=== PATIENT | female | born 1955 | race Caucasian/White ===

== ENCOUNTER 2019-12-30 05:23 | Day surgery (SDC) | payer OTHER ==
[~2019-12-30 05:23] MED LIST: ACETAMINOPHEN 325 MG TABLET ONE; ACETAMINOPHEN 325 MG TABLET PO PRN; CEFAZOLIN SODIUM 2 GM in DEXTROSE 5%-WATER 100 ML IV PRN; CELECOXIB 200 MG CAPSULE ONE; CELECOXIB 200 MG CAPSULE PO PRN; GABAPENTIN 100 MG CAPSULE ONE; GABAPENTIN 100 MG CAPSULE PO PRN; LACTATED RINGERS 1000 ML IV PRN; LIDOCAINE 0.5% INJ-PF (5 MG/ML) 50 ML SDV SUBCUT PRN; ONDANSETRON HCL INJ/PF 4 MG/2 ML SDV IV PRN; ONDANSETRON HCL INJ/PF 4 MG/2 ML SDV ONE; OXYCODONE HCL SR 10 MG TABLET PO ONE; OXYCODONE HCL SR 10 MG TABLET PO PRN; SCOPOLAMINE HYDROBROMIDE 1.5 MG PATCH.TD72 ONE; SCOPOLAMINE HYDROBROMIDE 1.5 MG PATCH.TD72 TD PRN; TRAMADOL HCL 50 MG TABLET ONE; TRAMADOL HCL 50 MG TABLET PO PRN; TRANEXAMIC ACID INJ/PF 1,000 MG/10 ML SDV IV PRN; VANCOMYCIN HCL 1,000 MG in NORMAL SALINE 250 ML IV PRN
[2019-12-30] MEDS ORDERED: VANCOMYCIN HCL INJ 1000 MG VIAL ONE (06:54)
[2019-12-30] MEDS ORDERED: BUPIVACAINE HCL 0.25 % INJ/PF (2.5 MG/1 ML) 30 ML VIAL ONE (06:54)
[2019-12-30] MEDS ORDERED: GENTAMICIN SULFATE INJ 80 MG/2 ML VIAL ONE (06:54)
[2019-12-30] MEDS ORDERED: KETOROLAC TROMETHAMINE INJ/PF 30 MG/1 ML SDV ONE (06:54)
[2019-12-30] MEDS ORDERED: LIDOCAINE 1% INJ-PF (10 MG/ML) 30 ML SDV ONE (06:54)
[2019-12-30] MEDS ORDERED: BACITRACIN INJ 50,000 UNIT VIAL ONE (06:55)
[2019-12-30] MEDS ORDERED: LIDOCAINE 2% INJ-PF (20 MG/ML) 10 ML AMPUL ONE (06:58)
[2019-12-30] MEDS ORDERED: ONDANSETRON HCL INJ/PF 4 MG/2 ML SDV ONE (06:59)
[2019-12-30] MEDS ORDERED: FENTANYL CITRATE INJ/PF 100 MCG/2 ML AMPUL ONE (06:59)
[2019-12-30] MEDS ORDERED: PROPOFOL INJ 200 MG/20 ML VIAL IV ONE (06:59)
[2019-12-30] MEDS ORDERED: MIDAZOLAM 2 MG/2 ML INJ ONE (06:59)
[2019-12-30] MEDS ORDERED: TRANEXAMIC ACID INJ/PF 1,000 MG/10 ML SDV ONE (07:35)
[2019-12-30] MEDS ORDERED: EPHEDRINE SULFATE INJ 50 MG/1 ML AMPULE ONE (08:25)
[2019-12-30] MEDS ORDERED: FENTANYL CITRATE INJ/PF 100 MCG/2 ML AMPUL IV PRN ×3 (08:30)
[2019-12-30] MEDS ORDERED: PROMETHAZINE HCL INJ 25 MG/1 ML VIAL IV PRN ×2 (08:30)
[2019-12-30] MEDS ORDERED: DIPHENHYDRAMINE HCL 50 MG/ML VIAL IV PRN (08:30)
[2019-12-30] MEDS ORDERED: ONDANSETRON HCL INJ/PF 4 MG/2 ML SDV IV PRN (08:30)
[2019-12-30] MEDS ORDERED: OXYCODONE-ACETAMINOPHEN 5-325 MG TABLET PO PRN ×2 (08:30)
[2019-12-30] MEDS ORDERED: MEPERIDINE HCL/PF INJ 25 MG/1 ML DISP.SYRIN IV PRN (08:30)
[2019-12-30] MEDS ORDERED: PHENYLEPHRINE HCL INJ/PF 10 MG/1 ML SDV ONE (10:37)
[2019-12-30] MEDS ORDERED: DEXAMETHASONE SOD PHOSPHATE INJ 4 MG/1 ML VIAL ONE (10:37)
--- NOTE | 2019-12-30 10:42 | RADIOLOGY REPORT (SQ) ---
EXAM DESCRIPTION: KNEE RIGHT 2 VIEWS COMPLETED DATE/TIME: 12/30/2019 10:12 am REASON FOR STUDY: CHECK POST OP PLACEMENT M17.11 UNILATERAL PRIMARY OSTEOARTHRITIS, RIGHT KNEE COMPARISON: None. NUMBER OF VIEWS: Two views. TECHNIQUE: AP and lateral radiographic images acquired of the right knee. LIMITATIONS: None. FINDINGS: Postoperative right knee two views. Good alignment. Total knee replacement with patellar resurfacing and bone cement. Appropriate soft tissue gas and air within the suprapatellar recess. IMPRESSION: Post right total knee replacement in good alignment TECHNICAL DOCUMENTATION: JOB ID: [id number] [address]- All Rights Reserved Reading location - IP/workstation name: [email or web address]
--- NOTE | 2019-12-30 10:53 | Operative Report ---
Operative Report DATE OF SURGERY: 12/30/19 PREOPERATIVE DIAGNOSIS: Right knee severe primary osteoarthritis POSTOPERATIVE DIAGNOSIS: Severe right knee primary osteoarthritis OPERATION: Right total knee arthroplasty SURGEON: YUSUF JENSEN JR ANESTHESIA: Spinal COMPLICATIONS: none ESTIMATED BLOOD LOSS: 20 cc PROCEDURE: Components: Yaa persona right total knee: 4 femur, C x 10 tibia, and a 29 patella BRIEF HISTORY: 64year old female with severe degenerative arthritis of right knee, which has failed conservative treatment and has elected for a total knee arthroplasty. They had been having severe debilitating pain that was preventing her from performing daily activities including ambulating for short distances, getting in and out of there car, going up and down stairs, and overall decreasing their quality of life due to their avoidance of activity because of pain. That failed conservative management including iulo-vyq-wsrwpmg pain medication such as Tylenol and ibuprofen. X-rays demonstrated severe vbly-rm-[id number] osteoarthritis with subchondral sclerosis osteophyte formation and joint space narrowing. Risks include but are not limited to bleeding, infection, anesthesia, , injury to nerve or vessel, pain, scar, leg length inequality, dislocation, future surgery, and blood clots. Patient read through the pre-op counseling form and signed and solicited for surgery on their right knee. OPERATIVE PROCEDURE: Patient was brought to the operating room on and underwent spinal anesthesia. After proper anesthesia was obtained, patient was positioned, padded, prepped, and draped in the usual sterile fashion on the operating room table. 2 grams of Ancef and 1 g of vancomycin were given. Appropriate time out was performed. Anterior incision and medial-parapatella approach was performed. Severe degenerative arthritis was noted. Osteophytes were removed from the femur and tibia, and the remainder of the ACL and PCL were removed. The proximal tibia was then prepared and cut perpendicular to the tibial shaft axis and measured to a C tibia. The distal femur was drilled, the canal was irrigated and the distal femoral guide was placed. The distal femur was cut 12 mm to 5 degrees of varus. An extension 10 block was placed in the gap was found to be appropriate. The tensor was placed in extension and the extension gap was balanced with releases until the goniometer on the tensor measured to 0. The tensor was placed in flexion and the femur was sized to 4. Drill holes were placed to the a ppropriate femoral rotation. The 4 and 1 block was placed and anterior- posterior and chamfer cuts were made. Posterior osteophytes were removed. The femoral trial was then placed, and the notch was cut. The combination of the tibial baseplate and the #10 polyethylene liner were then placed and the knee was taken through a range of motion with the trials in. This had excellent balance in extension and flexion as well as patellar tracking. The rotation of the tibial baseplate was marked, the tibial was anteriorly subluxed and the tibial component was pinned and drilled and punched. The patella AP aspect was measured to 19 mm and patella was cut parallel to the anterior patella surface. A 29 mm button was placed medially and superiorly as possible and the patella- button construct again measured 19 mm. Cement fixation places made on the femur and tibia, and pulsatile irrigation of the vanesa and soft tissue surfaces. The vanesa surfaces were cleaned and dried, and cementation of the femur, tibia, and patella. Periarticular injection with Lidocaine, Marcaine and Toradol was performed. The knee was irrigated with dilute betadine solution. A gram of Vancomycin was placed intra-articularly. The extensor mechanism was closed with 0 vicryl approximating sutures, number 2 Stratofix. The subcutaneous tissue closed with 2-0 monocryl and the skin closed with 3-0 running monocryl. A silver dressing was applied. All needle sponge and instrument counts were correct. Patient was awakened from sedation anesthesia and taken to recovery room in good condition. Yusuf Jensen DO
[2019-12-30] MEDS ORDERED: OXYCODONE HCL IR 5 MG TABLET PO PRN ×2 (12:09→12:10)
[2019-12-30] MEDS ORDERED: MORPHINE SULFATE 10 MG/ML INJ IV PRN (12:11)
[2019-12-30] MEDS ORDERED: DIPHENHYDRAMINE HCL 25 MG CAPSULE PO PRN (12:23)
[2019-12-30] MEDS ORDERED: ONDANSETRON 4 MG TAB.RAPDIS PO PRN (12:24)
[2019-12-30] MEDS ORDERED: DOCUSATE SODIUM 100 MG CAPSULE PO PRN (12:24)
[2019-12-30] MEDS ORDERED: NORMAL SALINE 1000 ML 1,000 ML IV PRN (12:25)
[2019-12-30] MEDS: ACETAMINOPHEN 325 MG TABLET PO SCH ×2 (13:20→21:31)
[2019-12-30] MEDS: KETOROLAC TROMETHAMINE INJ/PF 30 MG/1 ML SDV IV SCH ×2 (13:20→21:31)
[2019-12-30] MEDS ORDERED: ZOLPIDEM TARTRATE 5 MG TABLET PO PRN (13:57)
[2019-12-30] MEDS: CEFAZOLIN SODIUM 2 GM in DEXTROSE 5%-WATER 100 ML IV SCH ×2 (14:56→21:30)
[2019-12-30] MEDS ORDERED: GABAPENTIN 100 MG CAPSULE PO SCH (18:00)
[2019-12-30] MEDS ORDERED: PANTOPRAZOLE SODIUM 20 MG TABLET.DR PO SCH (18:00)
[2019-12-30] MEDS: TRAMADOL HCL 50 MG TABLET PO PRN (20:08)
[2019-12-31] MEDS: TRAMADOL HCL 50 MG TABLET PO PRN (02:16)
[2019-12-31] MEDS: ACETAMINOPHEN 325 MG TABLET PO SCH (05:30)
[2019-12-31] MEDS: KETOROLAC TROMETHAMINE INJ/PF 30 MG/1 ML SDV IV SCH (05:35)
--- NOTE | 2019-12-31 07:44 | PDOC PROGRESS REPORT ---
Subjective Progress Note for:: 12/31/19 Subjective:: Patient is doing well this morning. No acute events overnight. Reports some soreness but has been able to ambulate well to the bathroom without a walker by herself at night. Reason For Visit: M17.11 UNILATERAL PRIMARY OSTEOARTHRITIS, RIGHT KN Physical Exam Vital Signs: Temp Pulse Resp BP Pulse Ox 98.5 F 68 17 119/87 H 94 12/31/19 00:00 12/31/19 00:00 12/31/19 00:00 12/31/19 00:00 12/31/19 00:00 Intake & Output 12/30/19 12/31/19 01/01/20 06:59 06:59 06:59 Intake Total 0 4720 Output Total 2019 Balance 0 2700 Weight 69.9 kg Physical Exam: General appearance: PRESENT: no acute distress, cooperative, well-nourished Head exam: PRESENT: atraumatic, normocephalic Eye exam: PRESENT: EOMI Ear exam: PRESENT: normal external ear exam Mouth exam: PRESENT: neck supple Neck exam: ABSENT: tracheal deviation Respiratory exam: PRESENT: symmetrical, unlabored. ABSENT: accessory muscle use, wheezes Pulses: PRESENT: normal radial pulses, normal dorsalis pedis pulse Vascular exam: PRESENT: normal capillary refill GI/Abdominal exam: ABSENT: distended, firm Extremities exam: PRESENT: full ROM of bilateral shoulders, elbows wrists, knees, hips and ankles without pain Musculoskeletal exam: PRESENT: full ROM, normal inspection of all 4 extremities aside from that noted below. Neurological exam: PRESENT: alert, awake, oriented to person, oriented to place, oriented to time Psychiatric exam: PRESENT: appropriate affect. ABSENT: agitated Focused psych exam: ABSENT: catatonic Skin exam: PRESENT: intact. ABSENT: dry All as above aside from that noted in the HPI and the following: Right lower extremity -Pulses 2+ distally -Compartments soft -Wound dressing clean dry and intact no drainage in appropriate swelling for postop day -Sensation grossly intact to L3-4-5 S1 -Motor grossly intact to EHL TA gastroc and quad - Able to perform quad extension and elevate heel off of bed. Results Impressions: Knee X-Ray 12/30/19 00:00 IMPRESSION: Post right total knee replacement in good alignment Assessment & Plan - Diagnosis (1) Unilateral primary osteoarthritis, right knee Is this a current diagnosis for this admission?: Yes Plan: 2 doses of Ancef postoperatively q 8 hours to complete 24 hours perioperatively -Weightbearing as tolerated, no precautions, encourage out of bed TORRI for ADL training - PT/OT - Keep knee extended in bed, rolled towel under the ankle to obtain full extension -aspirin 325 daily for DVT prophylaxis for 6 weeks -multimodal pain management to avoid excessive narcotics, including gabapentin, tramadol, Toradol, acetaminophen. -Dressing should not be removed for 7 to 10 days until seen in the office -May shower with the dressing intact, if it starts to come off she should not get the incision wet. -I would like to follow the patient my office within the next 7 to 10 days at [address] [place] [address]. in [place] office #: [phone] - Time Time Spent with patient: Less than 15 minutes
[2019-12-31 08:43] VITALS: BP 119/87
[2019-12-31] MEDS ORDERED: (PENDING PHARMACY ID) (Ascorbic Acid [C-1000] 1,000 MG) PO SCH (10:00)
[2019-12-31] MEDS ORDERED: ASCORBIC ACID 500 MG TABLET PO SCH (10:00)
[2019-12-31] MEDS ORDERED: ASPIRIN 325 MG TABLET PO SCH (10:00)
[2019-12-31] MEDS ORDERED: MULTIVITAMINS W-IRON TABLET, CHEWABLE PO SCH ×2 (10:00)
[2019-12-31] MEDS ORDERED: POLYETHYLENE GLYCOL 3350 POWDER 17 GM/1 PACKET PO SCH (10:00)
[2019-12-31] MEDS ORDERED: LISINOPRIL 10 MG TABLET PO SCH (10:00)
[2019-12-31] MEDS ORDERED: SIMVASTATIN 10 MG TABLET PO SCH (10:00)
[2020-01-01] MEDS ORDERED: CELECOXIB 200 MG CAPSULE PO SCH (10:00)
--- NOTE | 2020-01-05 14:23 | PDOC DISCHARGE SUMMARY ---
Impression - Admit/DC Date/PCP Admission Date/Primary Care Provider: MICAELA DUMONT MD Discharge Date: 12/31/19 - Discharge Diagnosis (1) Unilateral primary osteoarthritis, right knee Is this a current diagnosis for this admission?: Yes - Assessment Summary: Right severe primary knee osteoarthritis - Additional Information Resuscitation Status: Full Code Discharge Diet: As Tolerated Discharge Activity: Activity As Tolerated, No Driving, Keep Legs Elevated, No Lifting Over 10 Pounds, Slowly Increase Activity, Supervised Activity, No tub bath, Walk Frequently Referrals: ANTONIO JENSEN JR, DO [ACTIVE PROVISIONAL STAFF] - 01/11/20 10:05 am () Home Medications: Ascorbic Acid [C-1000] 1,000 mg PO DAILY 12/20/19 Lisinopril [Prinivil] 10 mg PO DAILY 12/20/19 Multivit-Min/Iron/Folic/Lutein [Centrum Silver Women Tablet] 1 tab PO DAILY 12/20/19 Porter-3 Fatty Acids/Fish Oil [Fish Oil 1,000 mg Capsule] 1,000 mg PO DAILY 12/20/19 Simvastatin [Zocor 20 mg Tablet] 20 mg PO DAILY 12/20/19 Acetaminophen [Tylenol 325 mg Tablet] 975 mg PO Q8 tablet 12/31/19 Aspirin [Aspirin 325 mg Tablet] 325 mg PO DAILY tablet 12/31/19 Celecoxib [Celebrex 200 mg Capsule] 200 mg PO DAILY capsule 12/31/19 Docusate Sodium [Colace 100 mg Capsule] 100 mg PO TIDP PRN capsule 12/31/19 Gabapentin [Neurontin 100 mg Capsule] 100 mg PO BID capsule 12/31/19 Lisinopril [Prinivil 10 mg Tablet] 10 mg PO DAILY tablet 12/31/19 Oxycodone HCl [Oxy-Ir 5 mg Tablet] 5 mg PO Q4HP PRN tablet 12/31/19 Oxycodone HCl [Oxy-Ir 5 mg Tablet] 10 mg PO Q4HP PRN tablet 12/31/19 Tramadol HCl [Ultram 50 mg Tablet] 50 mg PO Q4HP PRN tablet 12/31/19 History of Present Illiness History of Present Illness: MICAELA CAMARGO is a very pleasant 64-year-old female who presented to my clinic with chronic right pain that is been going on for over a year. After thorough work-up and attempts at conservative treatment including activity modification and qjmy-jce-ukiixzg pain medication, they were having severe difficulty with ambulation and was over the counter pain medication for daily activity. They found the pain debilitating and decreasing thier quality of life as they were unable to perform activities of daily living such as ambulating short distances and getting in and out of the car. After a thorough work-up including x-rays that demonstrated joint space narrowing, mvtw-yk-[id number] contact, subchondral sclerosis, and osteophyte formation as well as discussing risks and benefits and other treatment options, the patient elected to proceed with a right total knee arthroplasty. Hospital Course Hospital Course: They were brought to the operating room on 12/30/2019 and underwent a right total knee arthroplasty and tolerated procedure very well with out complication. They were then admitted to the hospital floor for postoperative medical management, monitoring, and pain control. On postoperative day #1 they were ambulating well with physical therapy, to the degree that they approved them for discharge home. They were discharged home on 12/31/2019. They had no acute events or complications over the course of their stay. All detailed instructions and prescriptions were provided to the patient prior to admission on the year prior office visit. Physical Exam Vital Signs: Temp Pulse Resp BP Pulse Ox 98.5 F 68 17 119/87 H 94 12/31/19 08:37 12/31/19 08:37 12/31/19 08:37 12/31/19 08:37 12/31/19 08:37 Results Impressions: Knee X-Ray 12/30/19 00:00 IMPRESSION: Post right total knee replacement in good alignment Stroke Is this a Stroke Patient?: No Acute Heart Failure - Is this a Heart Failure Patient?: No
== END 2019-12-31 09:14 | disposition home or self-care (01) ==
LOC: OROUT 05:23 → 4S 11:10 → OROUT 12-31 09:14
PROVIDERS: ATTEND Orthopaedic Surgery
DX: M17.11 Unilateral primary osteoarthritis, right knee (principal); Z79.899 Other long term (current) drug therapy; Z79.82 Long term (current) use of aspirin; I10 Essential (primary) hypertension; Z85.3 Personal history of malignant neoplasm of breast
CPT/HCPCS: 01402; C1713; C1769; C1887; J0690; J1100; J1580; J1885; J2250; J2370; J2405; J2704; J3010; J3370; J3490; J7050; J7060; L3908